=== PATIENT | female | born 1960 | race Caucasian/White ===

== ENCOUNTER → 2016-10-06 | Outpatient (CLI) | payer OTHER | LOC: BMCIMAGING 08:33 | DX: Z12.31 Encounter for screening mammogram for malignant neoplasm of breast (principal); Z80.3 Family history of malignant neoplasm of breast | CPT/HCPCS: G0202 ==

== ENCOUNTER → 2017-07-17 | Outpatient (CLI) | payer OTHER | LOC: BMCIMAGING 14:12 | PROVIDERS: ATTEND General Practice | DX: Z13.820 Encounter for screening for osteoporosis (principal); M81.0 Age-related osteoporosis without current pathological fracture ==

== ENCOUNTER → 2017-10-18 | Outpatient (CLI) | payer OTHER | LOC: BMCIMAGING 14:00 | PROVIDERS: ATTEND General Practice | DX: Z12.31 Encounter for screening mammogram for malignant neoplasm of breast (principal); Z80.3 Family history of malignant neoplasm of breast ==

== ENCOUNTER → 2018-08-02 | Outpatient (CLI) | payer OTHER | LOC: BMCIMAGING 13:49 | PROVIDERS: ATTEND General Practice | DX: Z13.820 Encounter for screening for osteoporosis (principal); M81.0 Age-related osteoporosis without current pathological fracture; E07.9 Disorder of thyroid, unspecified; Z78.0 Asymptomatic menopausal state ==

== ENCOUNTER → 2018-11-15 | Outpatient (CLI) | payer OTHER | LOC: BMCIMAGING 13:12 | PROVIDERS: ATTEND General Practice | DX: Z12.31 Encounter for screening mammogram for malignant neoplasm of breast (principal); Z80.3 Family history of malignant neoplasm of breast ==

== ENCOUNTER → 2018-11-25 | Outpatient (CLI) | payer OTHER | LOC: BMCIMAGING 10:09 | PROVIDERS: ATTEND General Practice | DX: N64.89 Other specified disorders of breast (principal) ==

== ENCOUNTER → 2019-01-27 | Outpatient (CLI) | payer OTHER | LOC: BMCIMAGING 09:32 ==